=== PATIENT | female | born 1965 | race Caucasian/White ===

== ENCOUNTER 2023-11-15 11:50 | Outpatient (RCR) | payer BC, SELFPAY | END 2023-11-15 23:59 | disposition home or self-care (01) | LOC: RPT 11:50 | PROVIDERS: ATTENDING PHYSICIAN Family Medicine; PRIMARYCARE PHYSICIAN Family Medicine | DX: S93.421D Sprain of deltoid ligament of right ankle, subsequent encounter (principal); S90.01XD Contusion of right ankle, subsequent encounter; M65.871 Other synovitis and tenosynovitis, right ankle and foot | CPT/HCPCS: 97010; 97110; 97112; 97161; 97530 ==

== ENCOUNTER 2023-12-13 16:01 | Outpatient (RCR) | payer BC, SELFPAY | END 2023-12-14 07:27 | disposition home or self-care (01) | LOC: RPT 16:01 | PROVIDERS: ATTENDING PHYSICIAN Family Medicine; PRIMARYCARE PHYSICIAN Family Medicine | DX: S93.421D Sprain of deltoid ligament of right ankle, subsequent encounter (principal); M65.9 Synovitis and tenosynovitis, unspecified; S90.01XD Contusion of right ankle, subsequent encounter; Z73.6 Limitation of activities due to disability; R26.2 Difficulty in walking, not elsewhere classified | CPT/HCPCS: 97010; 97110; 97112; 97530 ==

== ENCOUNTER 2024-03-06 00:37 | Emergency (ER) | payer BC, SELFPAY ==
[2024-03-06 00:46] VITALS: BP 128/90
--- NOTE | 2024-03-06 05:36 | ED.MUSCINJ ---
HPI-Injury
<JAGUAR French - Last Filed: 03/06/24 06:16>
General
Chief Complaint: Musculo-Skeletal Complaint
Source: patient
Exam Limitations: none
Time Seen by Provider: 03/06/24 05:34
Travel History
Have you had any contact with someone who has COVID-19?: No
Do you have any symptoms of coronavirus? Fever > 100 degrees, chills, cough, shortness of breath, sore throat, loss of taste or smell, muscle aches, or headache?: No
History of Present Illness-Injury
Initial Injury comments:
58 year old female presents to the ER after an agitated patient inadvertently grabbed and squeezed her left hand while at work x6 hours. 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 She reports pain at the base of her left thumb that is worse with
movement. She has been icing her hand throughout the night that provides relief. She did take an Ibuprofen and continued to work. She has full ROM and strength with her left hand. Denies weakness or numbness. She is right hand dominant.
Past History
<JAGUAR French - Last Filed: 03/06/24 06:16>
Past History
ED Past Medical History: None
ED Past Surgical History: Other
Social History
Tobacco: Non-smoker
Drug: None
Personal:
Living: with family
Employment: Employed
Family History
Family History: Other (No history of subarachnoid hemorrhage)
Review of Systems
<JAGUAR French - Last Filed: 03/06/24 06:16>
Review of Systems
Allergies reviewed?: Yes
All Other Systems: Not applicable
Constitutional: Reports no symptoms
EENT: Reports no symptoms
Respiratory: Reports no symptoms
Cardiac: Reports no symptoms
ABD/GI: Reports no symptoms
: Reports no symptoms
Musculoskeletal: Reports other (Pain at base of left thumb)
Skin: Reports no symptoms
Neurological: Reports no symptoms
Endocrine: Reports no symptoms
Hematologic/Lymphatic: Reports bruising (Left dorsal hand)
Psychiatric: Reports no symptoms
Phy Exam
<JAGUAR French - Last Filed: 03/06/24 06:16>
General Physical Exam
General Presentation: well appearing and no apparent distress
General Skin: warm and dry
General Habitus: normal
General Mental: alert
General Hydration: appears well hydrated
ENT Exam
ENT Exam: EOMI, pharynx normal, neck supple and normocephalic
Eye Exam
Eye Exam: PERRL, cornea clear and conjunctiva normal
Cardiovascular Exam
Cardiovascular Exam: regular rate/rhythm, no edema, no murmur and normal peripheral pulses
Pulmonary Exam
Pulmonary Exam: lungs clear, no respiratory distress, no rales, no crackles, no rhonchi, no stridor, no wheezing and no cough
Gastrointestinal Exam
Gastrointestinal Exam: normal bowel sounds, non tender, soft, no organomegaly, no pulsatile mass and non distended
Neurological Exam
Neurological Exam: alert, oriented x3, no motor deficits and speech normal
Musculoskeletal Exam
Musculoskeletal Exam: full ROM and no edema
Skin Exam
Skin Exam: normal color, warm/dry, no rash, no petechia and other (Pinpoint ecchymosis on left dorsal web base )
Psychiatric Exam
Psychiatric Exam: normal mood/affect
Injury Course
<JAGUAR French - Last Filed: 03/06/24 06:16>
Orders/Labs/Results
Orders:
Orders
03/06/24 00:50
Hand, Left 3 View [CR Hand - Left Min 3 Views] Urgent
Comment:
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
<Vicenta Medina DO - Last Filed: 03/06/24 06:01>
Orders/Labs/Results
Orders:
Orders
03/06/24 00:50
Hand, Left 3 View [CR Hand - Left Min 3 Views] Urgent
Comment:
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
<JAGUAR French - Last Filed: 03/06/24 06:16>
MDM/Problems Addressed
Differential Diagnosis Includes:
Left thumb fracture vs sprain related to crush injury. Left thumb xray did not reveal a fracture. Patient's thumb/wrist placed in kody wrap and instructed to take Ibuprofen PRN for pain relief. Follow up with occupational health for recheck.
<Vicenta Medina DO - Last Filed: 03/06/24 06:01>
*Radiology
Radiology exam reviewed: preliminary read by ED provider (Left hand x-rays unremarkable.)
*Pulse Oximetry
Patient hypoxic: no
*Critical Care Note
Total Time (30-74mins, 75-104mins- exclusive of procedures): Not Applicable
ED Attending Note
<JAGUAR French - Last Filed: 03/06/24 06:16>
-
Portions of this chart may have been created with voice recognition software.� Occasional wrong word or��sound alike� substitutions may have occurred due to the inherent limitations of voice recognition software.
<Vicenta Medina DO - Last Filed: 03/06/24 06:01>
ED Attending Note
Patient seen and examined by attending physician: Yes
I performed the substantive portion of visit, reviewed & personally made and approve the management plan that is documented in note by myself or TOSHIA.: Yes
I performed a history and physical exam of patient and discussed management with resident, I reviewed resident's note and agree with documented findings and plan of care.: Yes
ED Attending Note:
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 She
complains of pain base of her left thumb that is worse with movement of her thumb. No weakness or numbness. She has not noticed any swelling. She did take ibuprofen with moderate proven in pain.
Injury occurred around 11:30 PM. She did present to the ED around 12:30 AM, triaged and had x-ray of her left hand performed. Due to lengthy wait time in the ED she returned to work and we called her to come back down to the ED.
As above, she did take a dose of ibuprofen with marked improvement in pain and has been able to work, use her hand without much difficulty.
58-year-old woman appears her stated age, she is bright and alert, pleasant, appears in no acute distress.
Skin is warm and dry, normal color. Good turgor.
Left hand: There is mild tenderness about the base of the left thumb with increased pain with abduction of the thumb especially against resistance. There is however full range of motion of the thumb without difficulty. No soft tissue swelling.
There is minimal pinpoint ecchymosis at dorsal web base. No soft tissue swelling. No tenderness to the hand nor wrist. Sensation and strength intact.
Left hand x-ray shows no evidence of fracture nor dislocation.
I suspect left thumb strain related to crush injury.
Patient's left thumb/wrist has been placed in a 2 inch Kody wrap by myself.
Recommend continuing NSAID as needed for pain.
Prompt follow-up with occupational health for recheck.
Discharge Plan
Departure
Patient Disposition: Home (Routine Discharge)
Date of Disposition: 03/06/24
Time of Disposition: 05:48
Patient with high blood pressure during this ER visit?: No
Condition: Good
Discharge Problem:
Strain of extensor muscle, fascia and tendon of left thumb at wrist and hand level, initial encounter
Instructions: Sprained Thumb (DC), How to Use an Elastic Bandage
Referrals:
Occupational Health- [Outside] - Call in 1-3 days for appt
Interventions
Interventions:
*Risk Screen - Suicide Last Done: 03/06/24 00:47
*Neglect/Abuse Screening Last Done: 03/06/24 00:47
*ED COVID-19 Vaccine History Last Done: 03/06/24 00:47
Discharge Date and Time
Print Language: MACEDONIAN
== END 2024-03-06 05:55 | disposition home or self-care (01) ==
LOC: EMR 00:37
PROVIDERS: EMERGENCY PHYSICIAN Emergency Medicine; FAMILY PHYSICIAN Family Medicine
DX: S66.212A Strain of extensor muscle, fascia and tendon of left thumb at wrist and hand level, initial encounter (principal); Y04.8XXA Assault by other bodily force, initial encounter; Y99.0 Civilian activity done for income or pay
CPT/HCPCS: 99283; 73130

== ENCOUNTER → 2024-06-25 12:48 | Outpatient (REF) | payer BC, SELFPAY | LOC: CPAP 12:48 | PROVIDERS: ATTENDING PHYSICIAN Nurse Practitioner Adult Health | DX: Z01.419 Encounter for gynecological examination (general) (routine) without abnormal findings (principal) | CPT/HCPCS: 87624 ==

== ENCOUNTER → 2024-07-01 10:40 | Outpatient (REF) | payer BC, SELFPAY ==
[2024-07-01 11:54] LABS: ALT (SGPT) 13 U/L (0-35); AST (SGOT) 17 U/L (14-36); Albumin 4.1 g/dl (3.5-5.0); Alkaline Phosphatase 82 U/L (38-126); Blood Urea Nitrogen 18 mg/dl (7-17); Calcium 9.6 mg/dl (8.4-10.2); Carbon Dioxide 24 mmol/L (22-30); Chloride 107 mmol/L (98-107); Glucose 100 mg/dl (70-99); HDL Cholesterol 46 mg/dl; LDL Cholesterol, Calculated 128 mg/dl; Potassium 4.2 mmol/L (3.5-5.1); Sodium 139 mmol/L (135-145); Total Bilirubin 0.4 mg/dl (0.2-1.3); Total Cholesterol 203 mg/dl (50-199); Total Protein 6.4 g/dl (6.3-8.2); Triglyceride 148 mg/dl (10-149); Very Low Density Lipoprotein 29 mg/dl (0-30); eGFR > 60.00
== END ==
LOC: REG 10:40
PROVIDERS: ATTENDING PHYSICIAN Nurse Practitioner Family; FAMILY PHYSICIAN Family Medicine
DX: Z00.00 Encounter for general adult medical examination without abnormal findings (principal)
CPT/HCPCS: 36415; 80053; 80061

== ENCOUNTER → 2024-07-09 17:14 | Outpatient (REF) | payer BC, SELFPAY | LOC: WDC 17:14 | PROVIDERS: ATTENDING PHYSICIAN Nurse Practitioner Family | DX: Z12.31 Encounter for screening mammogram for malignant neoplasm of breast (principal) | CPT/HCPCS: 77063; 77067 ==

== ENCOUNTER 2025-04-10 23:41 | Inpatient (IN) | payer BC, SELFPAY ==
[2025-04-10 18:51] VITALS: BP 217/110
--- NOTE | 2025-04-10 19:11 | ED.GENMED ---
History of Present Illness
<Lily Young PA-C - Last Filed: 04/15/25 08:01>
General
Chief Complaint: Breathing Problem
Source: patient
Exam Limitations: none
Time Seen by Provider: 04/10/25 18:56
History of Present Illness
History of Present Illness:
59yoF with a history of heterozygous factor V Leiden mutation presenting for evaluation of shortness of breath. Patient started to experience exertional dyspnea and intermittent palpitations yesterday. She walked into work today from the parking
lot. 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 By the time she got to the ICU, she was very short of breath and felt like her heart was racing. She was diaphoretic and felt a twinge of pain in her chest. Her blood pressure was also elevated at SBP was around
200. She came to the ED for evaluation. She is currently feeling improved although symptoms have not resolved. She denies any history of heart disease or VTE. Her father had an ID in his 50s. No tobacco use. She takes a baby aspirin daily for
prevention.
Past History
<Lily Young PA-C - Last Filed: 04/15/25 08:01>
Past History
ED Past Medical History: None
ED Past Surgical History: Other
Social History
Tobacco: Non-smoker
Drug: None
Personal:
Living: with family
Employment: Employed
Family History
Family History: Other (No history of subarachnoid hemorrhage)
Phy Exam
<Lily Young PA-C - Last Filed: 04/15/25 08:01>
General Physical Exam
General Presentation: well appearing
General Skin: warm and dry
General Habitus: normal
General Mental: alert
ENT Exam
ENT Exam: normocephalic
Cardiovascular Exam
Cardiovascular Exam: regular rate/rhythm, no edema, no murmur and normal peripheral pulses (2+ radial pulses bilaterally)
Pulmonary Exam
Pulmonary Exam: lungs clear, no respiratory distress, no rales, no crackles, no rhonchi and no wheezing
Neurological Exam
Neurological Exam: alert
[place] Coma Scale
Eye Opening: Spontaneous
Verbal Response: Oriented
Motor Response: Obeys Commands
GCS Total Score: 15
Skin Exam
Skin Exam: normal color and warm/dry
Psychiatric Exam
Psychiatric Exam: normal mood/affect
<Jaime Bob PA-C - Last Filed: 04/10/25 22:48>
[place] Coma Scale
GCS Total Score: 15
Scores
<Jaime Bob PA-C - Last Filed: 04/10/25 22:48>
Heart Failure Risk
Heart Failure Risk Score: Not Applicable
Course
<Lily Young PA-C - Last Filed: 04/15/25 08:01>
Orders/Labs/Results
Orders:
Orders
04/10/25 18:49
EKG [Electrocardiogram (*1)] Urgent
Reason for Study: Tachycardia
EKG- Treatment ONCE
04/10/25 19:10
Cardiac Monitoring- Treatment ONCE
04/10/25 20:11
Complete Blood Count/With Diff Urgent
Comprehensive Metabolic Panel Urgent
D-Dimer Urgent
NT-proBNP Urgent
PTT Urgent
Comment: ADDED
TSH Urgent
Comment: ADD ON
Troponin I Urgent
04/10/25 20:42
Add On- LAB Urgent
Tests Added?: TSH
04/10/25 21:03
CT Chest PE Study Urgent
Comment:
Reason For Exam: SOB, elevated D-dimer
04/10/25 21:13
EKG- Treatment ONCE
04/10/25 22:16
Heparin 8,300 units IV NOW STA
04/10/25 22:[address] Non Medication Order As Directed
Physician Order: PTT 6 hours after initial start of Heparin infusion
Above order entered?: Yes
04/10/25 22:30
Heparin 29240 Units/250 ml 25,000 units in 250 ml IV PER PROTOCOL
Weight to be used for heparin protocol in kilograms (kg):: 104.2
Protocol:: DVT/PE
PTT Goal Range to be used:: PTT 73 to 111 seconds
Order type:: Initial
INITIAL Infusion Dose (UNITS/KG/hr) & then follow protocol:: 18 units/kg/hr
Infusion Dose in UNITS/hr & then follow protocol (UNITS/hr):: 1,900
INFUSION RATE in mL/hr & then follow protocol (mL/hr):: 19
For DVT/PE algorithm, re-bolus for low PTT?: Yes
PTT less than or equal to 64 seconds:: Re-bolus 80 units/kg (max 10,000units). Increase by 400 units/hr
(+ 4mL/hr)
PTT 64.1 to 72.9 seconds:: Re-bolus 40 units/kg (max 5,000 units). Increase by 200 units/hr
(+ 2mL/hr)
PTT 73 to 111 seconds:: Target Range. No change in rate.
PTT 111.1 to 130.9 seconds:: Decrease rate by 200 units/hr (- 2 mL/hr)
PTT 131 to 199.9 seconds:: HOLD for 1 hr. Then decrease by 300 units/hr (- 3mL/hr)
PTT greater than or equal to 200 seconds:: HOLD for 2 hrs & Notify Provider. Then decrease by 400 units/hr
(- 4mL/hr)
Lab follow-up:: Each change, PTT q6h until 2 consecutive are therapeutic. Then
PTT daily.
04/10/25 23:13
Heparin 8,300 units IV PRN PRN
04/10/25 23:14
Heparin 4,200 units IV PRN PRN
04/10/25 23:15
Electrocardiogram (*1) Urgent
Reason for Study: Shortness of Breath
04/10/25 23:20
Troponin I Urgent
04/10/25 23:27
Admit/Transfer Patient As Directed
Co-Sign Provider:
Level of Care: Inpatient admission
Assign to:: Telemetry
Physician / Group: Htay
Diagnosis: Pulmonary Embolism
Reason for Telemetry: Arrhythmia
Date to Stop Telemetry: 04/13/25
Time to Stop Telemetry: 11:00
Reason for Hospitalization: heparin drip
Expected length of stay greater than two midnights?: Yes
ELOS- Estimated Length of Stay in days: 3
I certify the patient meets the requirements for IP care: Yes
PRN Pain Medication Management As Directed
May give lesser potent ordered pain med per pt: Yes
preference::
Protocol:: Medication orders for pain may be administered in a
manner that supports deferring to patient preference
when the pt is:
- Requesting an ordered lesser potent pain medication.
Least to most potent pain medications are defined
as: acetaminophen < NSAID < tramadol < opioids
(morphine, oxycodone, hydromorphone).
- Requesting a lesser dose of the same medication IF
ORDERED.
- Requesting a less intrusive route of administration
if both routes are prescribed by the provider (PO <
IV).
04/10/25 23:28
Code Status As Directed
Resuscitation Status: Full Code
04/11/25 00:34
Acetaminophen [Tylenol] 650 mg PO Q4HPRN PRN
04/11/25 00:34
Case Management Consult Once
Case Management Consult: Discharge Planning
Consult Notification Routine
Specialty to Notify: Hematology
Date consulting provider notified: 04/11/25
Time consulting provider notified: 07:59
Notified:: Provider
Comment: TT'd Physician On-Call(Guanako)
HEMATOLOGY CONSULT Routine
Consulting Provider: Gia Mujica
Was physician already notified: No
Reason for consult: Bilateral PEs, Factor 5 Leiden
Heparin Protocol- PTT Orders As Directed
PTT per Heparin protocol: -Obtain CBC and baseline PTT - if not already collected.
-Obtain PTT 6 hours from start of infusion. Then, every 6 hours until 2 consecutive
PTT's are therapeutic. Then, PTT Daily.
-With each rate change, obtain PTT every 6 hours until 2 consecutive PTT's are
therapeutic. Then, PTT Daily.
Activity As Directed
Activity Level: Out of Bed-Early Mobility
With Assistance
Notify MD As Directed
Notify physician if: PTT is greater than or equal to 200.
Vital Signs As Directed
Frequency: Per unit guidelines
04/11/25 05:26
Basic Metabolic Panel IN AM
Complete Blood Count/No Diff IN AM
Troponin I IN AM
04/11/25 Breakfast
Regular
At Your Request: Full Participation
04/13/25 11:00
DC Protocol for Telemetry ONCE
Abnormal Lab Results
04/10/25
20:11
RBC 6.37 H 10^6/uL
(4.20-5.40)
MCV 69.2 L fL
(81.0-99.0)
MCH 21.5 L pg
(27.0-31.0)
MCHC 31.1 L g/dL
(33.0-37.0)
RDW 15.7 H %
(11.5-14.5)
Plt Count 404 H 10^3/uL
(130-400)
Absolute Monos (auto) 0.8 H 10^3/uL
(0.1-0.6)
Monocytes % 10.5 H %
(1.7-9.3)
D-Dimer 1.78 H ug/mlFEU
(0.00-0.50)
Chloride 108 H mmol/L
(98-107)
BUN 20 H mg/dl
(7-17)
Glucose 106 H mg/dl
(70-99)
04/10/25 20:11
04/10/25 20:11
Vital Signs
Initial and Last Documented VS:
Initial Vital Signs
Temp Pulse Resp BP Pulse Ox
98.5 F 101 15 217/110 98
04/10/25 18:51 04/10/25 18:51 04/10/25 18:51 04/10/25 18:51 04/10/25 18:51
Last Documented Vital Signs
Temp Pulse Resp BP Pulse Ox
98.2 F 53 16 132/70 97
04/11/25 11:10 04/11/25 11:10 04/11/25 11:10 04/11/25 11:10 04/11/25 11:10
Kaelt;Jaime Bob PA-C - Last Filed: 04/10/25 22:48>
Orders/Labs/Results
Orders:
Orders
04/10/25 18:49
EKG [Electrocardiogram (*1)] Urgent
Reason for Study: Tachycardia
EKG- Treatment ONCE
04/10/25 19:10
Cardiac Monitoring- Treatment ONCE
04/10/25 20:11
Complete Blood Count/With Diff Urgent
Comprehensive Metabolic Panel Urgent
D-Dimer Urgent
NT-proBNP Urgent
PTT Urgent
Comment: ADDED
TSH Urgent
Comment: ADD ON
Troponin I Urgent
04/10/25 20:42
Add On- LAB Urgent
Tests Added?: TSH
04/10/25 21:03
CT Chest PE Study Urgent
Comment:
Reason For Exam: SOB, elevated D-dimer
04/10/25 21:13
EKG- Treatment ONCE
04/10/25 22:16
Heparin 8,300 units IV NOW STA
04/10/25 22:[address] Non Medication Order As Directed
Physician Order: PTT 6 hours after initial start of Heparin infusion
Above order entered?: Yes
04/10/25 22:30
Heparin 67507 Units/250 ml 25,000 units in 250 ml IV PER PROTOCOL
Weight to be used for heparin protocol in kilograms (kg):: 104.2
Protocol:: DVT/PE
PTT Goal Range to be used:: PTT 73 to 111 seconds
Order type:: Initial
INITIAL Infusion Dose (UNITS/KG/hr) & then follow protocol:: 18 units/kg/hr
Infusion Dose in UNITS/hr & then follow protocol (UNITS/hr):: 1,900
INFUSION RATE in mL/hr & then follow protocol (mL/hr):: 19
For DVT/PE algorithm, re-bolus for low PTT?: Yes
PTT less than or equal to 64 seconds:: Re-bolus 80 units/kg (max 10,000units). Increase by 400 units/hr
(+ 4mL/hr)
PTT 64.1 to 72.9 seconds:: Re-bolus 40 units/kg (max 5,000 units). Increase by 200 units/hr
(+ 2mL/hr)
PTT 73 to 111 seconds:: Target Range. No change in rate.
PTT 111.1 to 130.9 seconds:: Decrease rate by 200 units/hr (- 2 mL/hr)
PTT 131 to 199.9 seconds:: HOLD for 1 hr. Then decrease by 300 units/hr (- 3mL/hr)
PTT greater than or equal to 200 seconds:: HOLD for 2 hrs & Notify Provider. Then decrease by 400 units/hr
(- 4mL/hr)
Lab follow-up:: Each change, PTT q6h until 2 consecutive are therapeutic. Then
PTT daily.
04/10/25 23:13
Heparin 8,300 units IV PRN PRN
04/10/25 23:14
Heparin 4,200 units IV PRN PRN
04/10/25 23:15
Electrocardiogram (*1) Urgent
Reason for Study: Shortness of Breath
04/10/25 23:20
Troponin I Urgent
04/10/25 23:27
Admit/Transfer Patient As Directed
Co-Sign Provider:
Level of Care: Inpatient admission
Assign to:: Telemetry
Physician / Group: Bettiey
Diagnosis: Pulmonary Embolism
Reason for Telemetry: Arrhythmia
Date to Stop Telemetry: 04/13/25
Time to Stop Telemetry: 11:00
Reason for Hospitalization: heparin drip
Expected length of stay greater than two midnights?: Yes
ELOS- Estimated Length of Stay in days: 3
I certify the patient meets the requirements for IP care: Yes
PRN Pain Medication Management As Directed
May give lesser potent ordered pain med per pt: Yes
preference::
Protocol:: Medication orders for pain may be administered in a
manner that supports deferring to patient preference
when the pt is:
- Requesting an ordered lesser potent pain medication.
Least to most potent pain medications are defined
as: acetaminophen < NSAID < tramadol < opioids
(morphine, oxycodone, hydromorphone).
- Requesting a lesser dose of the same medication IF
ORDERED.
- Requesting a less intrusive route of administration
if both routes are prescribed by the provider (PO <
IV).
04/10/25 23:28
Code Status As Directed
Resuscitation Status: Full Code
04/11/25 00:34
Acetaminophen [Tylenol] 650 mg PO Q4HPRN PRN
04/11/25 00:34
Case Management Consult Once
Case Management Consult: Discharge Planning
Consult Notification Routine
Specialty to Notify: Hematology
Date consulting provider notified: 04/11/25
Time consulting provider notified: 07:59
Notified:: Provider
Comment: TT'd Physician On-Call(Guanako)
HEMATOLOGY CONSULT Routine
Consulting Provider: Gia Mujica
Was physician already notified: No
Reason for consult: Bilateral PEs, Factor 5 Leiden
Heparin Protocol- PTT Orders As Directed
PTT per Heparin protocol: -Obtain CBC and baseline PTT - if not already collected.
-Obtain PTT 6 hours from start of infusion. Then, every 6 hours until 2 consecutive
PTT's are therapeutic. Then, PTT Daily.
-With each rate change, obtain PTT every 6 hours until 2 consecutive PTT's are
therapeutic. Then, PTT Daily.
Activity As Directed
Activity Level: Out of Bed-Early Mobility
With Assistance
Notify MD As Directed
Notify physician if: PTT is greater than or equal to 200.
Vital Signs As Directed
Frequency: Per unit guidelines
04/11/25 05:26
Basic Metabolic Panel IN AM
Complete Blood Count/No Diff IN AM
Troponin I IN AM
04/11/25 Breakfast
Regular
At Your Request: Full Participation
04/13/25 11:00
DC Protocol for Telemetry ONCE
Abnormal Lab Results
04/10/25
20:11
RBC 6.37 H 10^6/uL
(4.20-5.40)
MCV 69.2 L fL
(81.0-99.0)
MCH 21.5 L pg
(27.0-31.0)
MCHC 31.1 L g/dL
(33.0-37.0)
RDW 15.7 H %
(11.5-14.5)
Plt Count 404 H 10^3/uL
(130-400)
Absolute Monos (auto) 0.8 H 10^3/uL
(0.1-0.6)
Monocytes % 10.5 H %
(1.7-9.3)
D-Dimer 1.78 H ug/mlFEU
(0.00-0.50)
Chloride 108 H mmol/L
(98-107)
BUN 20 H mg/dl
(7-17)
Glucose 106 H mg/dl
(70-99)
04/10/25 20:11
04/10/25 20:11
Vital Signs
Initial and Last Documented VS:
Initial Vital Signs
Temp Pulse Resp BP Pulse Ox
98.5 F 101 15 217/110 98
04/10/25 18:51 04/10/25 18:51 04/10/25 18:51 04/10/25 18:51 04/10/25 18:51
Last Documented Vital Signs
Temp Pulse Resp BP Pulse Ox
98.2 F 53 16 132/70 97
04/11/25 11:10 04/11/25 11:10 04/11/25 11:10 04/11/25 11:10 04/11/25 11:10
Kaelt;Lily Young PA-C - Last Filed: 04/15/25 08:01>
MDM/Problems Addressed
Differential Diagnosis Includes:
59yoF here with exertional dyspnea and palpitations since yesterday. Walked into work today and started to feel dyspneic with heart racing/diaphoresis. Hx of factor V Leiden. She is hypertensive on arrival with BP 217/110. She is non-toxic
appearing. Exam reassuring. Differential diagnosis includes but is not limited to: ACS, angina, PE, arrhythmia
Initial ED plan: EKG from triage shows NSR with nonspecific ST changes. No elevations noted. Will check cardiac labs, D-dimer, and CXR.
Final assessment: Troponin 0.025. D-dimer elevated and CTA chest subsequently ordered. Case signed out to Kevin Bob PA-C pending CT results. Will plan on admission given abnormal EKG and concerning history.
<Lily Young PA-C - Last Filed: 04/15/25 08:01>
*EKG
Interpreted by ED Provider?: Yes
EKG Intrepretation Date: 04/10/25
Heart Rate: 95
Rate: normal
Rhythm: sinus
[place]: normal axis
Interval: normal interval
QRS Pattern: normal QRS
Ischemia: non-specific ST changes
<Jaime Bob PA-C - Last Filed: 04/10/25 22:48>
*Critical Care Note
Total Time (30-74mins, 75-104mins- exclusive of procedures): Not Applicable
<Jaime Bob PA-C - Last Filed: 04/10/25 22:48>
Update Note
Update Note:
Assumed care of patient pending CT scan upon signout. CT scan was reviewed and demonstrates bilateral pulmonary emboli burden on the right is greater than on the left. Patient stable since being here and comfortable at rest. Heparin ordered.
Discussed with emergency room attending. Admit to hospital. Notified patient
ED Attending Note
<Lily Young PA-C - Last Filed: 04/15/25 08:01>
-
Portions of this chart may have been created with voice recognition software.� Occasional wrong word or��sound alike� substitutions may have occurred due to the inherent limitations of voice recognition software.
Discharge Plan
Departure
Patient Disposition: Admit
Date of Disposition: 04/10/25
Time of Disposition: 22:48
Presentation/result/management discussed w/ accepting MD/DO: Hospitalist
Patient with high blood pressure during this ER visit?: No
Discharge Problem:
Pulmonary embolism
Interventions
Interventions:
*Risk Screen - Suicide Last Done: 04/11/25 01:55
*General Assessment Last Done: 04/10/25 18:51
*Neglect/Abuse Screening Last Done: 04/10/25 18:51
*ED- Fall Risk Assessment Last Done: 04/10/25 19:32
*ED COVID-19 Vaccine History Last Done: 04/10/25 19:32
*Nursing Disposition Last Done: 04/11/25 00:12
ED- Cardiac Assessment Last Done: 04/10/25 20:02
ED- Pulmonary Assessment Last Done: 04/10/25 20:02
Discharge Date and Time
Discharge Date/Time: 04/11/25 00:35
[2025-04-10 19:25] VITALS: BP 153/96
[2025-04-10 19:30] VITALS: BMI 39.5
[2025-04-10 20:00] VITALS: BP 161/74
[2025-04-10 20:19] LABS: % Basophils 0.7 % (0-2); % Eosinophils 3.5 % (0-6); % Immature Granulocytes 0.1 % (0-0.5); % Lymphocytes 28.7 % (20.5-51.1); % Monocytes 10.5 % (1.7-9.3); % Neutrophils 56.5 % (42.2-75.2); Absolute Basophils 0.1 10^3/uL (0-0.2); Absolute Eosinophils 0.3 10^3/uL (0-0.7); Absolute Lymphocytes 2.1 10^3/uL (1.2-3.4); Absolute Monocytes 0.8 10^3/uL (0.1-0.6); Absolute Neutrophils 4.2 10^3/uL (1.4-6.5); Hematocrit 44.1 % (37.0-47.0); Hemoglobin 13.7 g/dL (12.0-16.0); Mean Corp Hgb Conc. 31.1 g/dL (33.0-37.0); Mean Corpuscular Hgb 21.5 pg (27.0-31.0); Mean Corpuscular Volume 69.2 fL (81.0-99.0); Mean Platelet Volume 8.7 fL (7.4-10.4); Nucleated Red Blood Cells % 0 %; Platelet Count 404 10^3/uL (130-400); Red Blood Cell Count 6.37 10^6/uL (4.20-5.40); Red Cell Dist. Width 15.7 % (11.5-14.5); White Blood Cell Count 7.4 10^3/uL (4.8-10.8)
[2025-04-10 20:32] LABS: D-Dimer 1.78 ug/mlFEU (0.00-0.50)
[2025-04-10 20:35] LABS: ALT (SGPT) 14 U/L (0-35); AST (SGOT) 18 U/L (14-36); Albumin 4.4 g/dl (3.5-5.0); Alkaline Phosphatase 78 U/L (38-126); Blood Urea Nitrogen 20 mg/dl (7-17); Calcium 9.6 mg/dl (8.4-10.2); Carbon Dioxide 26 mmol/L (22-30); Chloride 108 mmol/L (98-107); Estimated Creatinine Clearance 73 ml/min; Glucose 106 mg/dl (70-99); Potassium 4.2 mmol/L (3.5-5.1); Sodium 141 mmol/L (135-145); Total Bilirubin 0.4 mg/dl (0.2-1.3); Total Protein 7.1 g/dl (6.3-8.2); eGFR > 60.00
[2025-04-10 20:45] LABS: NT-proBNP 192 pg/ml; Troponin I 0.025 ng/ml
[2025-04-10 21:00] VITALS: BP 154/77
[2025-04-10 21:29] LABS: TSH 2.38 uIU/ml (0.47-4.68)
--- NOTE | 2025-04-10 23:18 | HPS.HSE ---
Family Physician
-
Family Physician: Damon Castano
Chief Complaint
-
Shortness of Breath
History of Present Illness
Patient is a 59 y/o female with known heterozygous Factor V Leiden who presents with shortness of breath. Patient reports yesterday while walking around shopping she began experiencing dyspnea on exertion. Last night when she walked up one of
flight stairs she again felt winded which is unusual. Today she was walking from the parking lot into the hospital and developed increased shortness of breath with a sensation of her heart racing. She was diaphoretic and had some pain in her chest.
A colleague took her vitals and noted her heart rate to be in the 130 so she came to the emergency department for evaluation. Patient denies any lower extremity edema. She denies any recent surgery or recent travel. She denies prior history of
DVT or PE.
Medical History
Past Medical History
Past Medical History: Reports Other
Additional Past Medical History:
Heterozygous Factor 5 Leiden
Past Surgical History: Reports
Social History
Tobacco: Non-smoker
Alcohol: None
Family History
Family History: Other (Strong family history of blood clots)
Allergies / Home Medications
Allergies reflects when Allergies were last updated in [employer].
Home Medications with original date entered in [employer]
Allergy/Medication List:
Allergies
Allergy/AdvReac Type Severity Reaction Status Date / Time
No Known Drug Allergies Allergy - Verified 04/10/25 21:17
seasonal Allergy itchy Uncoded 04/10/25 21:17
eyes,
sneezing
Home Medications
cetirizine 10 mg tablet (Zyrtec) 10 mg PO DAILY PRN seasonal allergies 04/10/25
triamcinolone acetonide 55 mcg nasal spray aerosol (Nasacort) 1 spray intranasal DAILY PRN seasonal allergies 04/10/25
Review of Systems
-
History Source: Patient
A 12 point ROS was completed and negative except as noted: Yes
Constitutional: Denies Fever or Chills
Respiratory: Denies Cough or Trouble Breathing
Cardiac: Denies Chest Pain or Palpitations
Abdomen/GI: Denies Abdominal Pain, Nausea, Vomiting, Diarrhea or Constipated
Physical Exam
Vital Signs
Vital Signs
Temp Pulse Resp BP Pulse Ox
98.6 F 57 24 154/77 92
04/10/25 19:35 04/10/25 22:45 04/10/25 22:45 04/10/25 21:00 04/10/25 22:45
Physical Exam
General: Comfortable and Conversant
HEENT: Anicteric and Moist mucous membranes; No Oxygen
Respiratory: Clear and Non Labored Respirations
Cardiac: S1/S2, Regular Rhythm and Tachycardia (Slightly)
GI: Soft and Non Tender
Rectal: Deferred by Provider
Musculoskeletal: No Clubbing, No Cyanosis and No Edema
Skin: Warm and Dry
Neuro: Awake, Alert, Oriented and Nonfocal/grossly intact
Psych: Calm
Laboratory Results
-
04/10/25 20:11
04/10/25 20:11
Laboratory Results
APTT Cancelled 04/10/25 22:17
Total Bilirubin 0.4 mg/dl (0.2-1.3) 04/10/25 20:11
AST 18 U/L (14-36) 04/10/25 20:11
ALT 14 U/L (0-35) 04/10/25 20:11
Alkaline Phosphatase 78 U/L (38-126) 04/10/25 20:11
Troponin I 0.025 ng/ml 04/10/25 20:11
Impression/Plan
-
Submassive Bilateral Pulmonary Embolism with Mild Right Heart Strain, likely related to underlying heterozygous Factor 5 Leiden mutation
-Consult Hematology
-Continue heparin drip
-Check Echocardiogram
Code Status: Full Code
--- NOTE | 2025-04-10 23:19 | W.PN.UPDATE ---
Update Note
Progress Note Update
This note serves as an addendum to the H&P by television actor TOSHIA Sari SALVADOR
HPI
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 Today on her way to work, dyspneic with minimal exertion, palpitation, diaphoretic , twinge of pain
in chest.
Vital Signs
Temp Pulse Resp BP Pulse Ox
98.6 F 57 24 154/77 92
04/10/25 19:35 04/10/25 22:45 04/10/25 22:45 04/10/25 21:00 04/10/25 22:45
PE
Gen: NAD, not toxic
HEENT: anicteric
Neck: supple
Lungs: CTA , no rub
Cor: RRR S1 s2
Abdomen:
CANDY COUNTER CLERK: AAO3
MS: 2+ radial pulses bilaterally
Psych: Nl mood and affect
Labs
04/10/25
20:11
WBC 7.4
Hgb 13.7
Plt Count 404 H
D-Dimer 1.78 H
Chloride 108 H
BUN 20 H
Creatinine 1.0
eGFR > 60.00
EKG
SINUS RHYTHM WITH MARKED SINUS ARRHYTHMIA
NONSPECIFIC ST ABNORMALITY
ABNORMAL ECG
NO PREVIOUS ECGS AVAILABLE
CT Chest PE Study
- Examination positive for bilateral pulmonary embolism.
- Findings suggesting mild right heart strain.
- No evidence for pulmonary infarction.
- No significant pleural effusion bilaterally.
NO PRIOR hospitalist admission:
ASSESSMENT & PLAN
Acute b/l PE with mild RV strain - suspect unprovoked due to underlying HX heterozygous factor V Leiden mutation
Marginal acute hypoxia
No prior HX PE
No smoker
No recent travel
No rct acute illness or suregry
- Agree with Heparin gtt
- CRM Cost analysis for Eliquis
- O2 PRN to keep POx > 93 %
- Heme consult
DVT Px: on Heparin gtt
Full code
IP TLM
[2025-04-10] MEDS: HEPARIN 8300 UNITS IV (23:38)
[2025-04-10] MEDS: HEPARIN 25000 UNITS/250 ML IV (23:40)
[2025-04-10 23:45] VITALS: BP 124/56
[2025-04-10 23:58] LABS: Troponin I 0.029 ng/ml
[2025-04-11 00:40] VITALS: BP 164/80; BMI 38.5
[2025-04-11 03:28] VITALS: BP 128/62
[2025-04-11 05:42] LABS: Hemoglobin 12.4 g/dL (12.0-16.0); Mean Corpuscular Hgb 21.3 pg (27.0-31.0); Mean Corpuscular Volume 68.7 fL (81.0-99.0); Mean Platelet Volume 8.9 fL (7.4-10.4); Platelet Count 376 10^3/uL (130-400); Red Blood Cell Count 5.82 10^6/uL (4.20-5.40); Red Cell Dist. Width 14.8 % (11.5-14.5); White Blood Cell Count 9.7 10^3/uL (4.8-10.8)
[2025-04-11 05:48] LABS: Blood Urea Nitrogen 17 mg/dl (7-17); Carbon Dioxide 26 mmol/L (22-30); Chloride 112 mmol/L (98-107); Estimated Creatinine Clearance 72 ml/min; Glucose 95 mg/dl (70-99); Sodium 141 mmol/L (135-145); eGFR > 60.00
[2025-04-11 05:59] LABS: Troponin I 0.025 ng/ml
--- NOTE | 2025-04-11 05:59 | PTCARENOTE ---
Pt admitted to the unit and assessed as per flow sheet. Pt denies pain and SOB. Walked to the bathroom w/o assist. Heparin gtt infusing @ 19cc/hr. No s/s of distress assessed. Will continue to monitor.
[2025-04-11 06:41] LABS: APTT > 200 Sec (23.4-35.0)
[2025-04-11 07:10] VITALS: BP 160/68
--- NOTE | 2025-04-11 07:56 | W.PN.HOSP.TC ---
Today's Communication/Plan
-
Cleared by hematology for discharge today
Assessment / Plan
Assessment / Plan
HPI: 59 y/o female with known heterozygous Factor V Leiden who presents with shortness of breath. Patient reports yesterday while walking around shopping she began experiencing dyspnea on exertion. Last night when she walked up one of flight
stairs she again felt winded which is unusual. Today she was walking from the parking lot into the hospital and developed increased shortness of breath with a sensation of her heart racing. She was diaphoretic and had some pain in her chest. A
colleague took her vitals and noted her heart rate to be in the 130 so she came to the emergency department for evaluation. Patient denies any lower extremity edema. She denies any recent surgery or recent travel. She denies prior history of DVT
or PE.
#Acute unprovoked bilateral PE
#Heterozygous factor V Leyden
Currently on IV heparin drip
Not hypoxic, denies shortness of breath/chest pain today, palpitations resolved
Appreciate hematology input, cleared for discharge on Eliquis 10 mg twice a day for 7 days, then 5 mg twice a day
Hematology recommends lifelong anticoagulation
Prescription provided for outpatient echocardiogram
Follow-up with PCP in 1 week, and hematology in the office in 2-3 weeks
#Obesity due to excess calories
Affects all aspects of care
Physical Exam
General: Obese, no acute distress
HEENT: Normocephalic, Atraumatic, EOMI, MMM
Respiratory: Clear to Auscultation bilaterally
Cardiac: Normal S1/S2, Regular Rate and Rhythm
GI: Soft, Nontender, Nondistended, Normal Bowel Sounds
Extremities: No Clubbing, Cyanosis, or Edema
Neuro: Nonfocal/Grossly Intact
Psych: Calm, Cooperative
Anticipated Discharge: Today
Subjective/Interval History
-
Date of Service: April 11, 2025
Patient denies chest pain, denies shortness of breath. Her palpitations resolved. No fever, no vomiting. She is requesting discharge today.
Objective Data
-
Labs:
Laboratory Results
04/10/25 04/10/25 04/11/25
20:11 22:17 05:26
WBC 7.4 9.7
Hgb 13.7 12.4
Hct 44.1 40.0
Plt Count 404 H 376
APTT 28.0 Cancelled > 200 H*
Sodium 141 141
Potassium 4.2 4.0
Chloride 108 H 112 H
Carbon Dioxide 26 26
BUN 20 H 17
Creatinine 1.0 1.0
Glucose 106 H 95
Calcium 9.6 9.0
Total Bilirubin 0.4
AST 18
ALT 14
Alkaline Phosphatase 78
Vital Signs:
Vital Signs
Temp Pulse Resp BP Pulse Ox
98.5 F 56 18 160/68 94
04/11/25 07:10 04/11/25 07:10 04/11/25 07:10 04/11/25 07:10 04/11/25 07:10
--- NOTE | 2025-04-11 09:33 | CON.ONC ---
Consultation
-
Date Consultation Requested: 04/11/25
Date Consultation Performed: 04/11/25
Requesting Provider: Lourdes Thorpe
Performing Provider: Gia Mujica
Reason for Consultation: PE
Impression
Impression
unprovoked bilateral PE with mild right heart strain
FVL, heterozygous, with family h/o VTE
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
Plan
Plan
With significant clot burden, unprovoked, in patient w/ FVL and strong family history, would rec. lifelong anticoagulation
Can transition to Eliquis, 10mg bid x7 days, then 5mg bid thereafter
Will likely treat at full dose for 3-6 months, then consider reducing to 2.5mg BID
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
Will arrange outpatient heme office f/u in a few weeks
Okay for d/c from my standpoint
Will sign off, please call w/ questions
Patient History
History of Present Illness
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 She has a h/o FVL, heterozygous, identified in the setting of + family history of VTE. She was sent to the ER,
d-dimer was elevated and CT chest showed bilateral PEs with mild RH strain. Echo has been ordered. She denies any provoking factors - recent trauma, travel, surgery, illness, immobility, etc. No leg swelling. She's been on ASA 81mg daily.
Past-Medical/Surgical History
PMH - chronic microcytic anemia, underwent heme w/u with Dr. Milton decades ago, 'not thalassemia,' GERD, seasonal allergies. Right ankle injury in 2022. Took OCPs in the past without VTE. She's UTD on colonoscopy, mammogram, clinical research scientist visits.
PSH -
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
FH - strong family h/o VTE
Patient Medication
�Medication �Instructions �Recorded �Confirmed �Last Taken �Type
cetirizine 10 mg tablet (Zyrtec) 10 mg PO DAILY PRN seasonal 04/10/25 04/10/25 Unknown History
allergies
triamcinolone acetonide 55 mcg 1 spray intranasal DAILY PRN 04/10/25 04/10/25 Unknown History
nasal spray aerosol (Nasacort) seasonal allergies
Aspirin Low-Strength 81 mg PO DAILY 04/11/25 04/11/25 04/10/25 History
Probiotic 1 pill PO DAILY 04/11/25 04/11/25 04/10/25 History
omeprazole 20 mg PO PRN PRN GERD 04/11/25 04/11/25 04/10/25 History
Active Medications
Generic Name Dose Route Start Last Admin
Trade Name Freq PRN Reason Stop Dose Admin
Acetaminophen 650 mg 04/11/25 00:34
Acetaminophen 325 Mg Tablet PO 05/09/25 00:33
Q4HPRN PRN
mild pain/ fever>100.5F
Heparin Sodium 8,300 units 04/10/25 23:13
Heparin 80 Units/Kg Rebolus-Do Not Discard IV 05/08/25 23:12
PRN PRN
PTT < OR = 64 seconds
Heparin Sodium 4,200 units 04/10/25 23:14
Heparin 40 Units/Kg Rebolus-Do Not Discard IV 05/08/25 23:13
PRN PRN
PTT = 64.1 to 72.9 seconds
Heparin Sodium 25,000 units in 250 mls @ 0 mls/hr 04/10/25 22:30 04/10/25 23:40
Heparin 07467 Units/250 Ml IV 250 mls
PER PROTOCOL WAGNER Administration
Protocol
Per Protocol
Review of Systems
-
History Source: Patient
Constitutional: Denies Fever, Weight Loss, No Appetite, Night Sweats or Weakness
Respiratory: Reports Trouble Breathing
GI: Denies Abdominal Pain or Anorexia
: Denies Bleeding
Musculoskeletal: Denies Edema
Hematologic/Lymphatic: Denies Bleeding
Physical Exam
-
General: Well Developed, Well Nourished, No Apparent Distress, Comfortable and Conversant; Negative Appears Chronically Ill
HEENT: Negative Jaundice
Musculoskeletal: No Clubbing, No Cyanosis and No Edema
Extremities: No C/C/E
Neurology: Non Focal, No Lateralizing Symptoms and No Word Finding Difficulty
Skin: Warm and Dry
Psych: Calm and Intact Judgement/Insight
Labs
Lab Results
WBC 9.7 10^3/uL (4.8-10.8) 04/11/25 05:26
RBC 5.82 10^6/uL (4.20-5.40) H 04/11/25 05:26
Hgb 12.4 g/dL (12.0-16.0) 04/11/25 05:26
Hct 40.0 % (37.0-47.0) 04/11/25 05:26
MCV 68.7 fL (81.0-99.0) L 04/11/25 05:26
MCH 21.3 pg (27.0-31.0) L 04/11/25 05:26
MCHC 31.0 g/dL (33.0-37.0) L 04/11/25 05:26
RDW 14.8 % (11.5-14.5) H 04/11/25 05:26
Plt Count 376 10^3/uL (130-400) 04/11/25 05:26
MPV 8.9 fL (7.4-10.4) 04/11/25 05:26
Abs Immat Gran (auto) 0.0 10^3/uL (0-0.05) 04/10/25 20:11
Absolute Neuts (auto) 4.2 10^3/uL (1.4-6.5) 04/10/25 20:11
Absolute Lymphs (auto) 2.1 10^3/uL (1.2-3.4) 04/10/25 20:11
Absolute Monos (auto) 0.8 10^3/uL (0.1-0.6) H 04/10/25 20:11
Absolute Eos (auto) 0.3 10^3/uL (0-0.7) 04/10/25 20:11
Absolute Basos (auto) 0.1 10^3/uL (0-0.2) 04/10/25 20:11
Immature Gran % 0.1 % (0-0.5) 04/10/25 20:11
Neutrophils % 56.5 % (42.2-75.2) 04/10/25 20:11
Lymphocytes % 28.7 % (20.5-51.1) 04/10/25 20:11
Monocytes % 10.5 % (1.7-9.3) H 04/10/25 20:11
Eosinophils % 3.5 % (0-6) 04/10/25 20:11
Basophils % 0.7 % (0-2) 04/10/25 20:11
Creatinine 1.0 mg/dL (0.6-1.0) 04/11/25 05:26
Vital Signs
Vital Signs
Temp Pulse Resp BP Pulse Ox
98.5 F 56 18 160/68 94
04/11/25 07:10 04/11/25 07:10 04/11/25 07:10 04/11/25 07:10 04/11/25 07:10
[2025-04-11 11:10] VITALS: BP 132/70
[2025-04-11] MEDS: ELIQUIS 10 MG PO (11:28)
--- NOTE | 2025-04-11 11:44 | CM ---
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
B/B on 2nd with full bath on 1st, 3 steps to enter. MANAGER SPA was independent in ADL's and drives. No DME or in-home services. Does have HC POA. No service. Pharmacy is [facility] on [address] [facility] in [place] and PCP is Dr. Best Castano with [facility]. Discharge POC: No needs.
--- NOTE | 2025-04-11 12:08 | CM ---
Patient has been medically cleared for discharge to home with no additional services. transported home.
--- NOTE | 2025-04-11 12:51 | W.DCSUMMARY ---
Discharge Summary
Discharge Data
Date of Admission: 04/10/25
Date of Discharge: 04/11/25
-
Pending Results: No
Hospital Course
Discharge diagnosis:
Acute unprovoked bilateral PE
Heterozygous factor V Leyden
Obesity due to excess calories
Consults: Hematology
Chest CT:
Examination is positive for bilateral pulmonary embolism.
On the right, there is embolism identified within the proximal aspect of the truncus anterior and extending into right upper lobe segmental and subsegmental branch vessels. Embolus is also seen at the branch point of the right middle lobe and lower
lobe pulmonary arteries, and extending into the proximal segmental branches of the right middle lobe and the right lower lobe.
On the left, embolism is seen at the origin of the left upper lobe pulmonary artery and extending into the proximal segmental branches. Embolism is also seen within the left lower lobe pulmonary artery, and extending into the segmental branches,
mainly anteriorly, but also some of the distal subsegmental branches.
No evidence for central straddling embolus within the main pulmonary artery.
The right ventricle is slightly larger than the left ventricle with slight straightening of the interventricular septum, findings suggesting mild right heart strain.
Thoracic aorta is fairly well-opacified with no evidence for thoracic aortic dissection or aneurysm. Minimal calcification of the thoracic aorta.
Mild dependent atelectasis in the posterior lungs. No CT evidence for pulmonary infarction.
There is no significant pleural effusion bilaterally. There is no significant pericardial effusion.
No evidence for dominant nodule from the thyroid gland. No significantly enlarged mediastinal, hilar, or axillary lymph nodes are identified.
In the visualized upper abdomen, no significant CT abnormality.
Mild changes of degenerative disc disease in the thoracic spine. Minimal levoconvex scoliosis centered in the upper thoracic spine.
Hospital course:
59-year-old female with a past medical history of GERD, obesity, and heterozygous factor V Leyden was admitted for acute unprovoked bilateral PE. Patient was not hypoxic. She was treated with an IV heparin drip. She was seen in conjunction with
hematology. She requested discharge. She was cleared by hematology for discharge on Eliquis 10 mg twice a day for 7 days, then 5 mg twice a day. Hematology recommends lifelong anticoagulation. She has been provided prescription to get an
outpatient echocardiogram. She needs to follow-up with her primary care doctor in 1 week, and hematology in the office in 2-3 weeks.
Disposition: Home self-care
Discharge planning: Required 36 minutes
Discharge Plan
-
Patient Disposition: Home (Routine Discharge)
Discharge Diagnosis/Procedures: Acute bilateral pulmonary embolism
Condition: Good
Diet: Regular
Activity: As tolerated
Driving Restrictions: As prior to admission
Activity Restrictions/Additional Instructions:
Please take Eliquis, 2 tabs twice a day for 7 days, then 1 tablet twice a day.
You need an outpatient echocardiogram/ultrasound of your heart�prescription provided.
Follow-up with your primary care doctor in 1 week, and hematology in 2-3 weeks.
Referrals:
Gia Mujica MD [Active] - in two to three weeks
Damon Castano MD [Family Provider] - in one week
Prescriptions:
New
Eliquis 5 mg Tablet
See Rx Instructions .ROUTE .COMPLEX Qty: 90 0RF
Rx Instructions:
2 tabs bid x7 days, then 1 tab bid
Continued
cetirizine [Zyrtec] 10 mg Tablet
10 mg PO DAILY PRN (Reason: seasonal allergies)
triamcinolone acetonide [Nasacort] 55 mcg Aerosol,Dexter
1 spray INTRANASAL DAILY PRN (Reason: seasonal allergies)
Aspirin Low-Strength
81 mg PO DAILY
omeprazole capsule
20 mg PO PRN PRN (Reason: GERD)
Probiotic capsule
1 pill PO DAILY
Discharge Orders:
Discharge Patient (As Directed); Ordered 04/11/25
Ordered By: Robert Connor
Discharge Date and Time
Discharge Date/Time: 04/11/25 12:02
Print Language: [place]
== END 2025-04-11 12:02 | disposition home or self-care (01) | DRG 176 ==
LOC: 2 NORTH 23:41
PROVIDERS: Physician Assistant; Physician Assistant Medical; ADMITTING PHYSICIAN Internal Medicine; ATTENDING PHYSICIAN Family Medicine; EMERGENCY PHYSICIAN Emergency Medicine; FAMILY PHYSICIAN Family Medicine; OTHER PHYSICIAN Internal Medicine Hematology & Oncology
DX: I26.99 Other pulmonary embolism without acute cor pulmonale (principal); D68.51 Activated protein C resistance; J98.11 Atelectasis; E66.09 Other obesity due to excess calories; Z68.38 Body mass index [BMI] 38.0-38.9, adult; K21.9 Gastro-esophageal reflux disease without esophagitis; M51.34 Other intervertebral disc degeneration, thoracic region; Z79.82 Long term (current) use of aspirin; Z82.49 Family history of ischemic heart disease and other diseases of the circulatory system; I26.94 Multiple subsegmental thrombotic pulmonary emboli without acute cor pulmonale
CPT/HCPCS: 71275; 80048; 80053; 83880; 84443; 84484; 85025; 85027; 85379; 85730; 93005; 99285; Q9967

== ENCOUNTER → 2025-04-16 12:43 | Outpatient (REF) | payer BC, SELFPAY | LOC: RCS 12:43 | PROVIDERS: ATTENDING PHYSICIAN Family Medicine; FAMILY PHYSICIAN Family Medicine | DX: I26.99 Other pulmonary embolism without acute cor pulmonale (principal) | CPT/HCPCS: 93306 ==

== ENCOUNTER → 2025-09-09 12:38 | Outpatient (REF) | payer BC, SELFPAY ==
[2025-09-09 15:46] LABS: ALT (SGPT) 14 U/L (0-35); AST (SGOT) 16 U/L (14-36); Albumin 4.2 g/dl (3.5-5.0); Alkaline Phosphatase 73 U/L (38-126); Blood Urea Nitrogen 17 mg/dl (7-17); Calcium 9.4 mg/dl (8.4-10.2); Carbon Dioxide 26 mmol/L (22-30); Chloride 106 mmol/L (98-107); Glucose 101 mg/dl (70-99); HDL Cholesterol 52 mg/dl; LDL Cholesterol, Calculated 123 mg/dl; Potassium 4.5 mmol/L (3.5-5.1); Sodium 138 mmol/L (135-145); Total Protein 6.7 g/dl (6.3-8.2); Very Low Density Lipoprotein 21 mg/dl (0-30); eGFR > 60.00
== END ==
LOC: REG 12:38
PROVIDERS: ATTENDING PHYSICIAN Nurse Practitioner Family; FAMILY PHYSICIAN Family Medicine
DX: Z13.228 Encounter for screening for other metabolic disorders (principal); Z13.220 Encounter for screening for lipoid disorders
CPT/HCPCS: 36415; 80053; 80061

== ENCOUNTER → 2025-09-23 19:20 | Outpatient (REF) | payer BC, SELFPAY | LOC: WDC 19:20 | PROVIDERS: ATTENDING PHYSICIAN Nurse Practitioner Adult Health; FAMILY PHYSICIAN Family Medicine | DX: Z12.31 Encounter for screening mammogram for malignant neoplasm of breast (principal) | CPT/HCPCS: 77063; 77067 ==

== ENCOUNTER → 2025-10-21 15:17 | Outpatient (REF) | payer BC, SELFPAY ==
[2025-10-21 16:43] LABS: D-Dimer 0.37 ug/mlFEU (0.00-0.50)
== END ==
LOC: RAD 15:17
PROVIDERS: ATTENDING PHYSICIAN Internal Medicine Hematology & Oncology; FAMILY PHYSICIAN Family Medicine
DX: D68.51 Activated protein C resistance (principal); I26.09 Other pulmonary embolism with acute cor pulmonale
CPT/HCPCS: 36415; 71275; 85379; Q9967